=== PATIENT | male | born 1965 | race Caucasian/White ===

== ENCOUNTER 2019-02-13 18:07 | Emergency (ER) | payer OTHER ==
[~2019-02-13] VITALS: Ht 180.3 cm; Wt 90.7 kg
[2019-02-13 18:28] VITALS: Ht 180.3 cm; Wt 90.7 kg
[2019-02-13 21:15] VITALS: BP 150/106
== END 2019-02-13 21:15 | disposition home or self-care (01) ==
LOC: ED 18:07
DX: S60.211A Contusion of right wrist, initial encounter (principal); S46.911A Strain of unspecified muscle, fascia and tendon at shoulder and upper arm level, right arm, initial encounter; W20.8XXA Other cause of strike by thrown, projected or falling object, initial encounter; Y93.89 Activity, other specified; Y92.89 Other specified places as the place of occurrence of the external cause; Y99.8 Other external cause status
CPT/HCPCS: J1885